=== PATIENT | female | born 1965 | race Caucasian/White ===

== ENCOUNTER 2022-01-24 19:17 | Inpatient (IN) | payer OTHER, SELFPAY ==
[2022-01-24 19:21] VITALS: BMI 44.7
[2022-01-24 19:30] VITALS: BP 142/82; PULSE 78; RESP 16; TEMP 36.1
--- NOTE | 2022-01-24 22:38 | PC.ADMIT ---
PT is a 56 year old Yemeni speaking female that arrived on this unit at 19:25 from [facility]. PT has a history of schizophrenia and has been well managed at home until recently her family noticed increasing paranoia and agitation. COVID neg on 01/22, CBC/CHEM on 01/18 WNL, tox screen not performed. PT is calm and cooperative, a & o x 3 but has very little insight into her current mental state. PT has had 3 previous suicide attempts one of which resulted in her cutting her jugular and subsequently causing a CVA. PT does have residual left hemiplegia and uses a cane for assistance with gait and requires assistance with bathing and dressing. PT denies SI/HI at this time, and states she will always seek staff if feeling unsafe. PT denies AH/VH at this time. PT has already received her seasonal flu vaccine. Hospitalist aware of need for consult.
[2022-01-25 08:28] VITALS: BP 152/80; PULSE 79; RESP 16
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
--- NOTE | 2022-01-25 09:17 | HO.PM.IMCN ---
History of Present Illness Data of Consult Service Date: 01/25/22 Primary Care Provider: Julita Hernández MD [facility] Reason for consult: medical H&P This is a 56 yo F who is admitted to the inpatient psych unit. Medical consult requested for routine medical H&P. Patient is seen in the exam room. [facility] staff is present. The patient does not divulge any medical information. She states that she has a team of doctors whom she follows with and does not need me to help her. She is requesting to speak with the psychiatrist for discharge. When asked about specific medical problems (HTN, DM, HLD, CAD) -- she says that they are all under control. [facility] Patient does not report divulge medical history except that she had a stroke before. Also reports prior kidney stones PSH Does not divulge FH States her family's medical problems are their own and its their HIPPA rights not to tell me them Denies tobacco, reports alcohol use, reports prior illicit substance use, but does not state what and when last use was Review of Systems Review of Systems: unable to completel [facility] Social History Household Members: Spouse Housing: House Do you presently have visiting nurse or other home services: No Patient Tobacco Use Status: Never used Tobacco e-Cigarette/Vaping Use: Never Used Use of substances other than those prescribed or required for medical reasons: No Have you been hit, kicked, punched, or otherwise hurt by someone within the past year? If so, by whom?: No Do you feel safe in your current relationship?: Yes Is there a partner from a previous relationship who is making you feel unsafe now?: No Are you made to feel afraid or neglected: No Advance Directives: No Advance Directives Information Provided: No Advance Directives on File: No Do you have thoughts of harming others: None Do you have a plan to hurt others: No Plan Recently lost weight without trying: No Nutrition Risks: No Nutritional Risk Patient : No : No Poor oral hygiene: No Meds Allergies Allergy/AdvReac Type Severity Reaction Status Date / Time Tetracyclines Allergy Mild Unknown Verified 01/24/22 19:43 bee pollen [bee stings] Allergy Unknown Verified 01/24/22 19:43 Iodinated Contrast Media Allergy Unknown Verified 01/24/22 19:43 [Contrast Dye] Active Medications: Current Medications Acetaminophen (Acetaminophen 325 Mg Tablet) 650 mg PO Q6H PRN PRN Reason: Headache/Pain Mild Scale (1-3) Al Hydroxide/Mg Hydroxide (Magnesium Hydrox/Alum Hydrox 30 Ml Oral.Susp) 30 ml PO Q6H PRN PRN Reason: Heartburn/Nausea Aspirin (Aspirin Enteric Coated 325 Mg Tablet.Dr) 325 mg PO DAILY [facility] Last Admin: 01/25/22 08:29 Dose: Not Given Documented by: Atorvastatin Calcium (Atorvastatin Calcium 20 Mg Tablet) 20 mg PO DAILY [facility] Last Admin: 01/25/22 08:29 Dose: Not Given Documented by: Baclofen (Baclofen 10 Mg Tablet) 5 mg PO BEDTIME [facility] Diphenhydramine HCl (Diphenhydramine Hcl 25 Mg Tablet) 50 mg PO Q4H PRN PRN Reason: agitation Furosemide (Furosemide 40 Mg Tablet) 40 mg PO DAILY [facility]; Protocol Last Admin: 01/25/22 08:29 Dose: Not Given Documented by: Haloperidol (Haloperidol 5 Mg Tablet) 5 mg PO Q4H PRN PRN Reason: agitation Hydroxyzine HCl (Hydroxyzine Hcl 25 Mg Tablet) 25 mg PO QID PRN PRN Reason: Anxiety Lorazepam (Lorazepam 1 Mg Tablet) 2 mg PO Q4H PRN PRN Reason: agitation Magnesium Hydroxide (Milk Of Magnesia 30 Ml Oral.Susp) 30 ml PO DAILY PRN PRN Reason: Constipation Nicotine Polacrilex (Nicotine Polacrilex 2 Mg Gum) 4 mg BUCCAL Q2H PRN PRN Reason: Nicotine Cravings Risperidone (Risperidone 1 Mg Tablet) 1 mg PO BID [facility] Last Admin: 01/25/22 08:29 Dose: Not Given Documented by: Trazodone HCl (Trazodone Hcl 50 Mg Tablet) 50 mg PO BEDTIME PRN PRN Reason: Insomnia Home Medications Medication Instructions Recorded Confirmed Last Taken Type aspirin 325 mg tablet,delayed 1 tab PO DAILY 01/24/22 01/24/22 Unknown History release atorvastatin 20 mg tablet 1 tab PO DAILY 01/24/22 01/24/22 Unknown History baclofen 5 mg tablet 1 tab PO BEDTIME 01/24/22 01/24/22 Unknown History escitalopram oxalate 10 mg tablet 1 tab PO DAILY 01/24/22 01/24/22 Unknown History fluticasone fur. 100 mcg-umeclid 1 puff INHALATION DAILY 01/24/22 01/24/22 Unknown History 62.5 mcg-vilant 25 mcg inhalat.powder (Trelegy Ellipta) furosemide 20 mg tablet 1 tab PO BID 01/24/22 01/24/22 01/24/22 History gabapentin 300 mg capsule 1 cap PO TID 01/24/22 01/24/22 Unknown History ipratropium bromide 21 mcg (0.03 INTRANASAL 01/24/22 Unknown History %) nasal spray tizanidine 4 mg capsule 1 cap PO BEDTIME 01/24/22 01/24/22 Unknown History Physical Exam Vital Signs and Narrative: Vital Signs: Last Vital Signs Temp 97 F 01/24/22 19:30 Pulse 79 01/25/22 08:28 Resp 16 01/25/22 08:28 BP 152/80 H 01/25/22 08:28 BMI result Body Mass Index 44.7 Const: Other: Exam -- patient does not allow exam From observation -- she has clear L hemiplegia and ambulates with a cane; her speech and EOMI are in tact; Assessment and Plan (1) Routine medical exam: Status: Acute Plan This is a 56 yo F who is admitted to the inpatient psych unit. Medical consult requested for routine medical H&P. Limited H&P and exam due to patient compliance. Appears stable at this time. Please reconsult PRN. Will sign off at this time.
[2022-01-25] MEDS: diphenhydrAMINE HCL 25 MG TABLET 50 MG PO (17:01)
[2022-01-25] MEDS: HaloperidoL 5 MG TABLET PO (17:01)
[2022-01-25] MEDS: LORazepam 1 MG TABLET 2 MG PO (17:01)
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
[2022-01-26] MEDS: Aspirin Enteric Coated 325 MG TABLET.DR PO (09:07)
[2022-01-26] MEDS: risperiDONE 1 MG TABLET PO (09:07)
[2022-01-26] MEDS: Atorvastatin Calcium 20 MG TABLET PO (09:08)
[2022-01-26] MEDS: Furosemide 20 MG TABLET PO ×2 (09:08→17:48)
[2022-01-26] MEDS: Gabapentin 300 MG CAPSULE PO ×3 (09:08→21:45)
[2022-01-26 09:39] VITALS: BP 140/78; PULSE 78; RESP 16; TEMP 36.6; O2SAT 96
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
[2022-01-26 18:00] VITALS: BP 132/67; PULSE 65; RESP 18; TEMP 36.4; O2SAT 97
--- NOTE | 2022-01-26 21:14 | PC.NURSE ---
Pt submitted a 3-Day Notice on 01/26/2022, up on Sunday01/31/2022.
[2022-01-26] MEDS: risperiDONE 2 MG TABLET PO (21:45)
[2022-01-26] MEDS: TiZANidine HCL 4 MG TABLET PO (21:45)
[2022-01-26] MEDS: Baclofen 10 MG TABLET 5 MG PO (21:55)
[2022-01-27] MEDS: Aspirin Enteric Coated 325 MG TABLET.DR PO (10:05)
[2022-01-27] MEDS: Atorvastatin Calcium 20 MG TABLET PO (10:06)
[2022-01-27] MEDS: Gabapentin 300 MG CAPSULE PO ×3 (10:06→20:33)
[2022-01-27] MEDS: Furosemide 20 MG TABLET PO ×2 (10:06→18:03)
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
[2022-01-27] MEDS: Ketorolac Tromethamine 30 MG/ML VIAL IM (12:32)
[2022-01-27 12:59] LABS: Appearance Urine HAZY; Color Urine YELLOW; Glucose Urine UA NEG (NEG); Leukocyte Esterase Urine NEG (NEG); Nitrite Urine NEG (NEG); Specific Gravity - Urine 1.025 (1.005-1.025); UACC Culture Trigger NO; Urine Blood 3+ (NEG); Urine Ketones NEG (NEG); Urine Protein 1+ MG/DL (NEG-TRACE)
[2022-01-27 13:13] LABS: Squamous Epithelial Cell Urine 1+ /LPF; WBC Urine 0-2 /HPF (0-4)
[2022-01-27 13:15] LABS: Amorphous Sediment Urine 1+ /LPF; Calcium Oxalate Crystals Urine 2+ /LPF
[2022-01-27] MEDS: risperiDONE 2 MG TABLET PO (20:33)
[2022-01-27] MEDS: Baclofen 10 MG TABLET 5 MG PO (20:33)
[2022-01-27] MEDS: TiZANidine HCL 4 MG TABLET PO (20:33)
[2022-01-27] MEDS: Acetaminophen 325 MG TABLET 650 MG PO (20:34)
[2022-01-27 20:46] VITALS: BP 123/70; PULSE 93; RESP 16; TEMP 35.9; O2SAT 96
[2022-01-28 06:00] VITALS: BP 120/65; PULSE 82; RESP 16; TEMP 36.9; O2SAT 94
[2022-01-28 08:00] LABS: Blood Urea Nitrogen 16 mg/dL (9-16); Creatinine Clr Calc Pharmacy 114.8; Estimated Glomerular Filt Rate > 60
[2022-01-28] MEDS: Gabapentin 300 MG CAPSULE PO ×3 (09:24→20:34)
[2022-01-28] MEDS: Atorvastatin Calcium 20 MG TABLET PO (09:25)
[2022-01-28] MEDS: Furosemide 20 MG TABLET PO ×2 (09:25→17:46)
[2022-01-28] MEDS: Aspirin Enteric Coated 325 MG TABLET.DR PO (09:25)
--- NOTE | 2022-01-28 14:14 | PM.EVENT ---
Event Note Date of Service: 01/28/22 Event Note: Asked to see patient with known history of renal calculi secondary to discomfort. When questioned, patient was able to do full accurate history of her renal calculi and treatment plan. At this point in time she does not wish any intervention. She has received Toradol yesterday with good results. She request no further intervention or workup
[2022-01-28 18:00] VITALS: BP 110/52; PULSE 79; RESP 16; TEMP 36.1
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
--- NOTE | 2022-01-28 19:52 | PC.NURSE ---
PT refusing to use CPAP. PT educated on risks of not using, pt verbalizes understanding.
[2022-01-28] MEDS: TiZANidine HCL 4 MG TABLET PO (20:33)
[2022-01-28] MEDS: Baclofen 10 MG TABLET 5 MG PO (20:33)
--- NOTE | 2022-01-28 20:35 | PC.NURSE ---
PT expressing frustration regarding hospitalization. Retracted 3 day notice on 01/26 due to pressure from staff that they would commit her but immediately signed another 3 day notice after retracting so patient feels the retraction she be voided. Per notes PT has spoken with human rights officer regarding this. PT states she has a strong medical support team and does not need to be hospitalized. PT denies any AH/VH, no SI/HI. PT requesting to speak w/ my endless track vehicle supervisor. Charge to talk with patient.
--- NOTE | 2022-01-28 21:57 | PC.NURSE ---
PT reported right flank pain however would not rate pain and refused any intervention and stated I will just deal with it despite several offers for intervention by this technical publications writer.
[2022-01-29 06:00] VITALS: BP 106/55; PULSE 66; RESP 18; TEMP 35.9; O2SAT 99
[2022-01-29] MEDS: Furosemide 20 MG TABLET PO (08:54)
[2022-01-29] MEDS: Atorvastatin Calcium 20 MG TABLET PO (08:54)
[2022-01-29] MEDS: Aspirin Enteric Coated 325 MG TABLET.DR PO (08:54)
[2022-01-29] MEDS: Gabapentin 300 MG CAPSULE PO ×3 (08:54→20:57)
[2022-01-29 08:58] VITALS: BP 130/60; PULSE 71; RESP 14; TEMP 35.8; O2SAT 98
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
[2022-01-29] MEDS: Baclofen 10 MG TABLET 5 MG PO (20:57)
[2022-01-29] MEDS: Ketorolac Tromethamine 30 MG/ML VIAL IM (20:59)
[2022-01-29 21:00] VITALS: BP 132/71; PULSE 92; TEMP 36.2; O2SAT 96
[2022-01-29] MEDS: TiZANidine HCL 4 MG TABLET PO (21:14)
[2022-01-30 06:00] VITALS: BP 126/62; PULSE 86; RESP 18; TEMP 36.3; O2SAT 98
[2022-01-30] MEDS: Acetaminophen 325 MG TABLET 650 MG PO (06:36)
[2022-01-30] MEDS: Aspirin Enteric Coated 325 MG TABLET.DR PO (08:49)
[2022-01-30] MEDS: Furosemide 20 MG TABLET PO ×2 (08:50→17:33)
[2022-01-30] MEDS: Atorvastatin Calcium 20 MG TABLET PO (08:50)
[2022-01-30] MEDS: Gabapentin 300 MG CAPSULE PO ×3 (08:50→22:52)
[2022-01-30] MEDS: Escitalopram Oxalate 10 MG TABLET PO (14:40)
[2022-01-30 16:00] VITALS: BP 118/73; PULSE 73; TEMP 36.6; O2SAT 98
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
[2022-01-30] MEDS: TiZANidine HCL 4 MG TABLET PO (22:52)
[2022-01-30] MEDS: Baclofen 10 MG TABLET 5 MG PO (22:53)
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
== END 2022-01-31 14:02 | disposition home or self-care (01) | DRG 885 ==
PROVIDERS: Admitting Provider Psychiatry & Neurology Psychiatry; PCP Family Medicine; Visit Provider Psychiatry & Neurology Psychiatry
DX: F20.0 Paranoid schizophrenia (principal); N20.0 Calculus of kidney; Z86.73 Personal history of transient ischemic attack (TIA), and cerebral infarction without residual deficits; Z91.51 Personal history of suicidal behavior; Z79.82 Long term (current) use of aspirin; Z79.899 Other long term (current) drug therapy
CPT/HCPCS: 36415; 81001; 82565; 84520; J1885; Q0163

== ENCOUNTER 2022-02-09 21:22 | Inpatient (IN) | payer OTHER, SELFPAY ==
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
[2022-02-09] MEDS: Gabapentin 100 MG CAPSULE PO (22:55)
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
[2022-02-10 06:00] VITALS: BP 96/64; PULSE 84; RESP 16; TEMP 36; O2SAT 93
[2022-02-10] MEDS: Furosemide 20 MG TABLET PO ×2 (09:06→20:20)
[2022-02-10] MEDS: Escitalopram Oxalate 10 MG TABLET PO (09:07)
[2022-02-10] MEDS: Atorvastatin Calcium 20 MG TABLET PO (09:07)
[2022-02-10] MEDS: Aspirin 325 MG TABLET PO (09:07)
[2022-02-10] MEDS: Gabapentin 300 MG CAPSULE PO ×3 (09:07→20:20)
[2022-02-10] MEDS: Ipratropium Bromide Nas 0.03 % 30 ML SPRAY 2 SPRAY NOSTRIL-B (09:11)
[2022-02-10 09:31] LABS: Cholesterol 154 mg/dL; HDL Cholesterol 49 mg/dL; LDL Cholesterol Calculated 68 mg/dl; Magnesium 2.4 mg/dL (1.6-2.6); Triglycerides 187 mg/dL
[2022-02-10 09:34] LABS: Estimated Average Glucose 108 mg/dL; Hemoglobin A1c % 5.4 %
[2022-02-10 09:52] LABS: Free T4 (Free Thyroxine) 1.22 ng/dL (0.71-1.85); Thyroid Stimulating Hormone 2.12 uIU/mL (0.32-4.0)
[2022-02-10 10:06] LABS: Folate 15.1 ng/mL (> or = 4.0); Vitamin B12 653 pg/mL (200-900)
--- NOTE | 2022-02-10 12:33 | HO.PM.IMCN ---
History of Present Illness Data of Consult Service Date: 02/10/22 Primary Care Provider: Unknown Physician HPI Reason for consult: Routine medical consult This chasidy 57 yo F with a PMh as outlined below who is admitted to the inpatient psychiatric unit. Medical consult requested for routine medical H&P per protocol. Patient is seen and examined in their room. They deny any medical complaints at this time. PMH CVA Kidney Stones COPD/Asthma PSH ? kidney surgery for stones FH Kidney disease and heart disease SH Denies any current alcohol, tobacco or illicit substance use Review of Systems Review of Systems: negative except HPI FORMERLY [facility], 1928–1983 Medical History (Updated 02/10/22 @ 12:42 by Carlos Doty MD) Schizophrenia, paranoid, chronic with acute exacerbation Social History Household Members: None Housing: House Do you presently have visiting nurse or other home services: No Patient Tobacco Use Status: Never used Tobacco e-Cigarette/Vaping Use: Never Used Use of substances other than those prescribed or required for medical reasons: No Currently Displaying Signs/Symptoms of Drug Intoxication Withdrawal: No Have you been hit, kicked, punched, or otherwise hurt by someone within the past year? If so, by whom?: No Do you feel safe in your current relationship?: Yes Is there a partner from a previous relationship who is making you feel unsafe now?: No Are you made to feel afraid or neglected: No Advance Directives: No Do you have thoughts of harming others: None Do you have a plan to hurt others: No Plan Recently lost weight without trying: No How much weight loss: Not applicable Nutrition Risks: No Nutritional Risk Patient : No : No Poor oral hygiene: No service: No Sexual orientation: Straight/Heterosexual Meds Allergies Allergy/AdvReac Type Severity Reaction Status Date / Time bee pollen [bee stings] Allergy Severe Anaphylaxis Verified 01/28/22 22:10 Iodinated Contrast Media Allergy Severe Unknown Verified 01/28/22 22:11 [Contrast Dye] Tetracyclines Allergy Mild Unknown Verified 01/24/22 19:43 Active Medications: Current Medications Acetaminophen (Acetaminophen 325 Mg Tablet) 650 mg PO Q6H PRN PRN Reason: Headache/Pain Mild Scale (1-3) Al Hydroxide/Mg Hydroxide (Magnesium Hydrox/Alum Hydrox 30 Ml Oral.Susp) 30 ml PO Q6H PRN PRN Reason: Heartburn/Nausea Aspirin (Aspirin 325 Mg Tablet) 325 mg PO DAILY [facility] Last Admin: 02/10/22 09:07 Dose: 325 mg Documented by: Atorvastatin Calcium (Atorvastatin Calcium 20 Mg Tablet) 20 mg PO DAILY [facility] Last Admin: 02/10/22 09:07 Dose: 20 mg Documented by: Baclofen (Baclofen 10 Mg Tablet) 5 mg PO BEDTIME [facility] Last Admin: 02/09/22 22:53 Dose: Not Given Documented by: Escitalopram Oxalate (Escitalopram Oxalate 10 Mg Tablet) 10 mg PO DAILY [facility] Last Admin: 02/10/22 09:07 Dose: 10 mg Documented by: Furosemide (Furosemide 20 Mg Tablet) 20 mg PO BID [facility]; Protocol Last Admin: 02/10/22 09:06 Dose: 20 mg Documented by: Gabapentin (Gabapentin 300 Mg Capsule) 300 mg PO TID@0800,1200,2000 [facility] Last Admin: 02/10/22 09:07 Dose: 300 mg Documented by: Gabapentin (Gabapentin 100 Mg Capsule) 100 mg PO BEDTIME [facility] Haloperidol (Haloperidol 5 Mg Tablet) 5 mg PO Q6H PRN PRN Reason: agitation, anxiety Hydroxyzine HCl (Hydroxyzine Hcl 25 Mg Tablet) 25 mg PO Q6H PRN PRN Reason: Anxiety Ipratropium [place] (Ipratropium [place] Abhishek 0.03 % 30 Ml [place]) 2 spray NOSTRIL-B QID PRN PRN Reason: Wheezing Last Admin: 02/10/22 09:11 Dose: 2 spray Documented by: Lorazepam (Lorazepam 1 Mg Tablet) 1 mg PO Q8H PRN PRN Reason: anxiety Magnesium Hydroxide (Milk Of Magnesia 30 Ml Oral.Susp) 30 ml PO DAILY PRN PRN Reason: Constipation Melatonin (Melatonin 3 Mg Tablet) 9 mg PO BEDTIME PRN PRN Reason: insomnia Non-Formulary Medication (Trelegy Ellipta) 100 mcg INHALE DAILY [facility] Risperidone (Risperidone 2 Mg Tablet) 2 mg PO BEDTIME [facility] Tizanidine HCl (Tizanidine Hcl 4 Mg Tablet) 4 mg PO BEDTIME [facility] Last Admin: 02/09/22 22:53 Dose: Not Given Documented by: Trazodone HCl (Trazodone Hcl 50 Mg Tablet) 50 mg PO BEDTIME PRN PRN Reason: Insomnia Home Medications Medication Instructions Recorded Confirmed Last Taken Type aspirin 325 mg tablet,delayed 1 tab PO DAILY 01/24/22 01/24/22 Unknown History release atorvastatin 20 mg tablet 1 tab PO DAILY 01/24/22 02/09/22 Unknown History baclofen 5 mg tablet 1 tab PO BEDTIME 01/24/22 02/09/22 Unknown History escitalopram oxalate 10 mg tablet 1 tab PO DAILY 01/24/22 01/24/22 Unknown History fluticasone fur. 100 mcg-umeclid 1 puff INHALATION DAILY 01/24/22 01/24/22 Unknown History 62.5 mcg-vilant 25 mcg inhalat.powder (Trelegy Ellipta) furosemide 20 mg tablet 1 tab PO BID 01/24/22 02/09/22 01/24/22 History gabapentin 300 mg capsule 1 cap PO TID 01/24/22 01/24/22 Unknown History ipratropium bromide 21 mcg (0.03 INTRANASAL 01/24/22 Unknown History %) nasal spray tizanidine 4 mg capsule 1 cap PO BEDTIME 01/24/22 02/09/22 Unknown History Physical Exam Vital Signs and Narrative: Vital Signs: Last Vital Signs Temp 96.8 F 02/10/22 06:00 Pulse 84 02/10/22 06:00 Resp 16 02/10/22 06:00 BP 96/64 02/10/22 06:00 Pulse Ox 93 02/10/22 06:00 Const: Other: Constitutional - Awake and Alert, No apparent distress Eyes - PERRLA, EOMI Cardiovascular - S1S2, RRR, No edema Respiratory - Normal lung expansion, Normal respiratory effort, No respiratory distress, CTA bilaterally Gastrointestinal - NT / ND; +BS; No rebound or guarding - No CVA tenderness Extremities - no calf tenderness bilaterally, no swelling Musculoskeletal - Normal inspection, normal ROM Skin - Warm/Dry Neurological - Alert & oriented x3, L Dimitry-plagia; CN 2-12 in tact b/l Psychological - Appropriate affect Results Labs Labs: Laboratory Results - last 24 hr 02/10/22 02/10/22 02/10/22 08:44 08:44 08:44 Estimat Average Glucose 108 Hemoglobin A1c % 5.4 Magnesium 2.4 Triglycerides 187 Cholesterol 154 LDL Cholesterol, Calc 68 HDL Cholesterol 49 Vitamin B12 653 Folate 15.1 TSH 2.12 Free T4 1.22 Assessment and Plan (1) Routine medical exam: Status: Acute Plan 57 yo F admitted to the inpatient psych unit. Medical consultation sought for routine medical H&P. Patient has no active medical issues. Continue her chronic meds. Patient has been counseled on age appropriate health maintenance as an outpatient. Continue care per primary team. Will sign off. Please re-consult if any issues arise.
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
[2022-02-10 18:00] VITALS: BP 114/67; PULSE 84
[2022-02-10 20:15] VITALS: BP 140/92; PULSE 98
[2022-02-10] MEDS: Baclofen 10 MG TABLET 5 MG PO (20:20)
[2022-02-10] MEDS: Gabapentin 100 MG CAPSULE PO (20:20)
[2022-02-10] MEDS: risperiDONE 2 MG TABLET PO (20:20)
[2022-02-10] MEDS: TiZANidine HCL 4 MG TABLET PO (20:56)
[2022-02-11] MEDS: Atorvastatin Calcium 20 MG TABLET PO (08:28)
[2022-02-11] MEDS: Gabapentin 300 MG CAPSULE PO ×3 (08:28→20:27)
[2022-02-11] MEDS: Furosemide 20 MG TABLET PO ×2 (08:28→20:27)
[2022-02-11] MEDS: Escitalopram Oxalate 10 MG TABLET PO (08:28)
[2022-02-11] MEDS: Aspirin 325 MG TABLET PO (08:28)
[2022-02-11 08:30] VITALS: BP 99/61; PULSE 63; RESP 14; TEMP 36.3; O2SAT 94
[2022-02-11] MEDS: Ipratropium Bromide Nas 0.03 % 30 ML SPRAY 2 SPRAY NOSTRIL-B ×2 (08:30→20:31)
[2022-02-11 09:15] VITALS: BP 133/81; PULSE 75; RESP 18
--- NOTE | 2022-02-11 17:29 | HO.PSYCHPN ---
Subjective Subjective Date of Service: 02/11/22 Reason For Visit: Schizophrenia Interim History: Patient seen and discussed with team. Per licensed staff mft, pt had fall at 9:30am, no LOC, did not hit her head, had lost her balance, will give permission for cane. Daughter visited and helped her shower, will be visiting. Patient evaluated today and upon interview she reports she fell due to feeling unsteady, but says her cane helps. Sleep is poor, energy is low, feels tired. Medication is fine, does not want changes. No questions or concerns. Mood is okay. In the milieu, patient is safe and appropriate in behavior. Denies SI/SIB/HI upon inquiry. Denies irritability or assaultive ideation. Says she feels safe. 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 Obese, in hospital attire, okay hygiene. Poor eye contact, attentive. No Tics or Tremors. No abnormal involuntary movements. Calm, guarded but ultimately cooperative with interview. Non-pressured speech, spontaneous with regular rate and rhythm, normal volume and prosody. No prolonged speech latency or dysarthria. Mood is ?tired,? affect is euthymic. Denies SI/SIB/HI upon inquiry. Denies A/VH. Paranoid delusional thought content. Thoughts are focused on fixed delusion. No known cognitive or memory impairment. Insight/ Judgment limited. Diagnostics Vital Signs (24Hr): Vital Signs - 24 hr 02/12/22 08:26 02/12/22 18:00 Temperature 97.4 F 98.0 F Pulse Rate 87 74 Respiratory Rate 14 Blood Pressure 141/65 H 126/60 Pulse Oximetry 95 98 Medications Medications Current Medications Acetaminophen (Acetaminophen 325 Mg Tablet) 650 mg PO Q6H PRN PRN Reason: Headache/Pain Mild Scale (1-3) Al Hydroxide/Mg Hydroxide (Magnesium Hydrox/Alum Hydrox 30 Ml Oral.Susp) 30 ml PO Q6H PRN PRN Reason: Heartburn/Nausea Aspirin (Aspirin 325 Mg Tablet) 325 mg PO DAILY [facility] Last Admin: 02/12/22 08:24 Dose: 325 mg Documented by: Atorvastatin Calcium (Atorvastatin Calcium 20 Mg Tablet) 20 mg PO DAILY [facility] Last Admin: 02/12/22 08:24 Dose: 20 mg Documented by: Baclofen (Baclofen 10 Mg Tablet) 5 mg PO BEDTIME [facility] Last Admin: 02/12/22 20:02 Dose: 5 mg Documented by: Escitalopram Oxalate (Escitalopram Oxalate 10 Mg Tablet) 10 mg PO DAILY [facility] Last Admin: 02/12/22 08:24 Dose: 10 mg Documented by: Furosemide (Furosemide 20 Mg Tablet) 20 mg PO BID [facility]; Protocol Last Admin: 02/12/22 20:01 Dose: 20 mg Documented by: Gabapentin (Gabapentin 300 Mg Capsule) 300 mg PO TID@0800,1200,2000 [facility] Last Admin: 02/12/22 20:02 Dose: 300 mg Documented by: Gabapentin (Gabapentin 100 Mg Capsule) 100 mg PO BEDTIME [facility] Last Admin: 02/12/22 20:02 Dose: 100 mg Documented by: Haloperidol (Haloperidol 5 Mg Tablet) 5 mg PO Q6H PRN PRN Reason: agitation, anxiety Hydroxyzine HCl (Hydroxyzine Hcl 25 Mg Tablet) 25 mg PO Q6H PRN PRN Reason: Anxiety Ipratropium [place] (Ipratropium [place] Abhishek 0.03 % 30 Ml [place]) 2 spray NOSTRIL-B QID PRN PRN Reason: Wheezing Last Admin: 02/12/22 08:23 Dose: 2 spray Documented by: Lorazepam (Lorazepam 1 Mg Tablet) 1 mg PO Q8H PRN PRN Reason: anxiety Magnesium Hydroxide (Milk Of Magnesia 30 Ml Oral.Susp) 30 ml PO DAILY PRN PRN Reason: Constipation Melatonin (Melatonin 3 Mg Tablet) 9 mg PO BEDTIME PRN PRN Reason: insomnia Non-Formulary Medication (Trelegy Ellipta) 100 mcg INHALE DAILY [facility] Risperidone (Risperidone 2 Mg Tablet) 2 mg PO BEDTIME [facility] Last Admin: 02/12/22 20:02 Dose: 2 mg Documented by: Tizanidine HCl (Tizanidine Hcl 4 Mg Tablet) 4 mg PO BEDTIME [facility] Last Admin: 02/12/22 20:01 Dose: 4 mg Documented by: Trazodone HCl (Trazodone Hcl 50 Mg Tablet) 50 mg PO BEDTIME PRN PRN Reason: Insomnia Allergies Allergies Allergy/AdvReac Type Severity Reaction Status Date / Time bee pollen [bee stings] Allergy Severe Anaphylaxis Verified 01/28/22 22:10 Iodinated Contrast Media Allergy Severe Unknown Verified 01/28/22 22:11 [Contrast Dye] Tetracyclines Allergy Mild Unknown Verified 01/24/22 19:43 Assessment & Plan Assessment & Plan (1) Schizophrenia, paranoid, chronic with acute exacerbation: Status: Acute Code(s): F20.0 - Paranoid schizophrenia Plan Caryn is a 56 yo female who carries a dx of paranoid schizophrenia. 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 She presented to [facility] ED on 02/07/22 due to disorganized and paranoid behavior, brought in by her after found in middle of road screaming at 5am. Pt recently admitted to [facility] M5 01/25/22 to 01/31/22. She was started on risperdal with good effect and discharged on 2 mg QHS. Since discharge, pt reports she has been non-adherent with PO risperdal. Pt has SELMA but refuses to use hospital CPAP.? Plan: re-start risperdal 2 mg QHS due to benefit on prev admission. Pt appears calmer during this admission and with increased behavioral control vs previous admission, in which she was much more agitated and difficult to redirect. Q15 min safety checks, CV, 3 day notice 02/09/2202/11: resume using cane, able to stay in behavioral control Monitor response to medications. Monitor for safety in the milieu. Discharge on stabilization. Patient seen. Chart reviewed. Discussed with team. Obtain collateral contact info?as needed I spent minutes with the patient and/or on the patient floor today, greater than?50% of which was spent counseling/coordinating care. Reason for contiued inpatient stay Substantial Risk for: rapid decompensation and med/psych decompensation
[2022-02-11 20:15] VITALS: BP 111/54; PULSE 75; TEMP 36.3; O2SAT 95
[2022-02-11] MEDS: risperiDONE 2 MG TABLET PO (20:27)
[2022-02-11] MEDS: Baclofen 10 MG TABLET 5 MG PO (20:27)
[2022-02-11] MEDS: Gabapentin 100 MG CAPSULE PO (20:29)
[2022-02-11] MEDS: TiZANidine HCL 4 MG TABLET PO (20:29)
[2022-02-12] MEDS: Ipratropium Bromide Nas 0.03 % 30 ML SPRAY 2 SPRAY NOSTRIL-B (08:23)
[2022-02-12] MEDS: Escitalopram Oxalate 10 MG TABLET PO (08:24)
[2022-02-12] MEDS: Gabapentin 300 MG CAPSULE PO ×3 (08:24→20:02)
[2022-02-12] MEDS: Aspirin 325 MG TABLET PO (08:24)
[2022-02-12] MEDS: Furosemide 20 MG TABLET PO ×2 (08:24→20:01)
[2022-02-12] MEDS: Atorvastatin Calcium 20 MG TABLET PO (08:24)
[2022-02-12 08:26] VITALS: BP 141/65; PULSE 87; RESP 14; TEMP 36.3; O2SAT 95
[2022-02-12 18:00] VITALS: BP 126/60; PULSE 74; TEMP 36.7; O2SAT 98
--- NOTE | 2022-02-12 18:40 | P.PNPSI_ITS ---
Subjective Subjective Date of Service: 02/12/22 Reason For Visit: Schizophrenia Subjective Notes: Laws Warning, Conditional Voluntary and 3 Day Interim History: Patient seen and discussed with team. Patient evaluated today and upon interview pt says she is Doing alright. Denies having questions or concerns. Sleep is good, snores, energy is okay. Denies mood concerns, says medication is helping. In the milieu, patient is safe and appropriate in behavior, playing board game with peers. Denies SI/SIB/HI upon inquiry. Denies irritability or assaultive ideation. Says she feels safe. 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 Obese, in hospital attire, okay hygiene. Poor eye contact, attentive. No Tics or Tremors. No abnormal involuntary movements. Calm, guarded but ultimately cooperative with interview. Non-pressured speech, spontaneous with regular rate and rhythm, normal volume and prosody. No prolonged speech latency or dysarthria. Mood is ?alright,? affect is euthymic. Denies SI/SIB/HI upon inquiry. Denies A/VH. Paranoid delusional thought content. Thoughts are focused on fixed delusion. No known cognitive or memory impairment. Insight/ Judgment limited. Diagnostics Vital Signs (24Hr): Vital Signs - 24 hr 02/12/22 18:00 Temperature 98.0 F Pulse Rate 74 Blood Pressure 126/60 Pulse Oximetry 98 Medications Medications Current Medications Acetaminophen (Acetaminophen 325 Mg Tablet) 650 mg PO Q6H PRN PRN Reason: Headache/Pain Mild Scale (1-3) Al Hydroxide/Mg Hydroxide (Magnesium Hydrox/Alum Hydrox 30 Ml Oral.Susp) 30 ml PO Q6H PRN PRN Reason: Heartburn/Nausea Aspirin (Aspirin 325 Mg Tablet) [address] [facility] Last Admin: 02/12/22 08:24 Dose: 325 mg Documented by: Atorvastatin Calcium (Atorvastatin Calcium 20 Mg Tablet) [address] [facility] Last Admin: 02/12/22 08:24 Dose: 20 mg Documented by: Baclofen (Baclofen 10 Mg Tablet) [address] [facility] Last Admin: 02/12/22 20:02 Dose: 5 mg Documented by: Escitalopram Oxalate (Escitalopram Oxalate 10 Mg Tablet) [address] [facility] Last Admin: 02/12/22 08:24 Dose: 10 mg Documented by: Furosemide (Furosemide 20 Mg Tablet) [address] [facility]; Protocol Last Admin: 02/12/22 20:01 Dose: 20 mg Documented by: Gabapentin (Gabapentin 300 Mg Capsule) 300 mg PO TID@0800,1200,2000 [facility] Last Admin: 02/12/22 20:02 Dose: 300 mg Documented by: Gabapentin (Gabapentin 100 Mg Capsule) [address] [facility] Last Admin: 02/12/22 20:02 Dose: 100 mg Documented by: Haloperidol (Haloperidol 5 Mg Tablet) 5 mg PO Q6H PRN PRN Reason: agitation, anxiety Hydroxyzine HCl (Hydroxyzine Hcl 25 Mg Tablet) 25 mg PO Q6H PRN PRN Reason: Anxiety Ipratropium [place] (Ipratropium [place] Abhishek 0.03 % 30 Ml [place]) 2 spray NOSTRIL-B QID PRN PRN Reason: Wheezing Last Admin: 02/12/22 08:23 Dose: 2 spray Documented by: Lorazepam (Lorazepam 1 Mg Tablet) 1 mg PO Q8H PRN PRN Reason: anxiety Magnesium Hydroxide (Milk Of Magnesia 30 Ml Oral.Susp) 30 ml PO DAILY PRN PRN Reason: Constipation Melatonin (Melatonin 3 Mg Tablet) 9 mg PO BEDTIME PRN PRN Reason: insomnia Non-Formulary Medication (Trelegy Ellipta) [address] [facility] Risperidone (Risperidone 2 Mg Tablet) [address] [facility] Last Admin: 02/12/22 20:02 Dose: 2 mg Documented by: Tizanidine HCl (Tizanidine Hcl 4 Mg Tablet) [address] [facility] Last Admin: 02/12/22 20:01 Dose: 4 mg Documented by: Trazodone HCl (Trazodone Hcl 50 Mg Tablet) 50 mg PO BEDTIME PRN PRN Reason: Insomnia Allergies Allergies Allergy/AdvReac Type Severity Reaction Status Date / Time bee pollen [bee stings] Allergy Severe Anaphylaxis Verified 01/28/22 22:10 Iodinated Contrast Media Allergy Severe Unknown Verified 01/28/22 22:11 [Contrast Dye] Tetracyclines Allergy Mild Unknown Verified 01/24/22 19:43 Assessment & Plan Assessment & Plan (1) Schizophrenia, paranoid, chronic with acute exacerbation: Status: Acute Code(s): F20.0 - Paranoid schizophrenia Plan Caryn is a 56 yo female who carries a dx of paranoid schizophrenia. 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 She presented to [facility] ED on 02/07/22 due to disorganized and paranoid behavior, brought in by her after found in middle of road screaming at 5am. Pt recently admitted to [facility] [place] [facility] 01/25/22 to 01/31/22. She was started on risperdal with good effect and discharged on 2 mg QHS. Since discharge, pt reports she has been non-adherent with PO risperdal. Pt has SELMA but refuses to use hospital CPAP.? Plan: re-start risperdal 2 mg QHS due to benefit on prev admission. Pt appears calmer during this admission and with increased behavioral control vs previous admission, in which she was much more agitated and difficult to redirect. Q15 min safety checks, CV, 3 day notice 02/09/2202/11: resume using cane, able to stay in behavioral control 02/12: no medication changes, pt reports feeling stable Monitor response to medications. Monitor for safety in the milieu. Discharge on stabilization. Patient seen. Chart reviewed. Discussed with team. Obtain collateral contact info?as needed I spent minutes with the patient and/or on the patient floor today, greater than?50% of which was spent counseling/coordinating care. Reason for contiued inpatient stay Substantial Risk for: med/psych decompensation
[2022-02-12] MEDS: TiZANidine HCL 4 MG TABLET PO (20:01)
[2022-02-12] MEDS: Baclofen 10 MG TABLET 5 MG PO (20:02)
[2022-02-12] MEDS: risperiDONE 2 MG TABLET PO (20:02)
[2022-02-12] MEDS: Gabapentin 100 MG CAPSULE PO (20:02)
[2022-02-13 08:51] VITALS: BP 141/72; PULSE 64; TEMP 36.6
[2022-02-13] MEDS: Furosemide 20 MG TABLET PO ×2 (09:03→21:09)
[2022-02-13] MEDS: Gabapentin 300 MG CAPSULE PO ×3 (09:03→21:09)
[2022-02-13] MEDS: Escitalopram Oxalate 10 MG TABLET PO (09:03)
[2022-02-13] MEDS: Aspirin 325 MG TABLET PO (09:04)
[2022-02-13] MEDS: Atorvastatin Calcium 20 MG TABLET PO (09:04)
[2022-02-13] MEDS: Ipratropium Bromide Nas 0.03 % 30 ML SPRAY 2 SPRAY NOSTRIL-B (09:08)
--- NOTE | 2022-02-13 15:14 | PC.NURSE ---
Patient retracted previous 3 day , signed a new on on 02/13, up on 02/16.
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
[2022-02-13 19:50] VITALS: BP 117/62; PULSE 74; RESP 17; TEMP 36.2; O2SAT 97
[2022-02-13] MEDS: TiZANidine HCL 4 MG TABLET PO (21:09)
[2022-02-13] MEDS: Gabapentin 100 MG CAPSULE PO (21:09)
[2022-02-13] MEDS: risperiDONE 2 MG TABLET PO (21:09)
[2022-02-13] MEDS: Baclofen 10 MG TABLET 5 MG PO (21:09)
[2022-02-14 08:00] VITALS: BP 134/85; PULSE 86; RESP 17; TEMP 36.3; O2SAT 96
[2022-02-14] MEDS: Atorvastatin Calcium 20 MG TABLET PO (08:42)
[2022-02-14] MEDS: Furosemide 20 MG TABLET PO ×2 (08:42→19:09)
[2022-02-14] MEDS: Aspirin 325 MG TABLET PO (08:43)
[2022-02-14] MEDS: Escitalopram Oxalate 10 MG TABLET PO (08:44)
[2022-02-14] MEDS: Gabapentin 300 MG CAPSULE PO ×3 (08:45→20:49)
--- NOTE | 2022-02-14 18:59 | P.PNPSI_ITS ---
Subjective Subjective Date of Service: 02/14/22 Reason For Visit: Schizophrenia Interim History: Patient reports that she is in good mood and sleeping better. She says that the dizziness which she has soon was is from Risperdal remains but is getting better and much less noticeable. Patient denies any SI, HI AVH and continues to take and appreciate Risperdal. No complaints, no requests. Patient remains in good behavioral and impulse control and appropriate on the unit. Mental Status Exam Mental Status Exam Narrative: Pt is alert and oriented; behavior is calm and cooperative; dressed in casual attire, adequately groomed, walks with limp s/p CVA; mood is described as good and affect congruent, calm; eye contact appropriate; Speech is normal rate, volume and prosody; no psychomotor agitation present; thought process goal oriented and mostly linear; though still circumstantial, much less than on admission; Thought content processing why she got so dysregulated, dealing with anger towards her father and on treatment; perhaps some delusional thinking; she denies current delusional content or?paranoid ideation but acknowledges recent delusional thoughts; denies any SI/HI. Denies AVH; ?Patients insight and judgment are impaired but improved. Diagnostics Vital Signs (24Hr): Vital Signs - 24 hr 02/13/22 19:50 02/14/22 08:00 Temperature 97.1 F 97.3 F Pulse Rate 74 86 Respiratory Rate 17 17 Blood Pressure 117/62 134/85 Pulse Oximetry 97 96 Medications Medications Current Medications Acetaminophen (Acetaminophen 325 Mg Tablet) 650 mg PO Q6H PRN PRN Reason: Headache/Pain Mild Scale (1-3) Al Hydroxide/Mg Hydroxide (Magnesium Hydrox/Alum Hydrox 30 Ml Oral.Susp) 30 ml PO Q6H PRN PRN Reason: Heartburn/Nausea Aspirin (Aspirin 325 Mg Tablet) 325 mg PO DAILY [facility] Last Admin: 02/14/22 08:43 Dose: 325 mg Documented by: Atorvastatin Calcium (Atorvastatin Calcium 20 Mg Tablet) 20 mg PO DAILY [facility] Last Admin: 02/14/22 08:42 Dose: 20 mg Documented by: Baclofen (Baclofen 10 Mg Tablet) 5 mg PO BEDTIME [facility] Last Admin: 02/13/22 21:09 Dose: 5 mg Documented by: Escitalopram Oxalate (Escitalopram Oxalate 10 Mg Tablet) 10 mg PO DAILY [facility] Last Admin: 02/14/22 08:44 Dose: 10 mg Documented by: Fluticasone/Vilanterol (Fluticasone/Vilanterol 100/25 Blst.W.Dev) 1 puff INHALE RDAILY [facility] Furosemide (Furosemide 20 Mg Tablet) 20 mg PO BID [facility]; Protocol Last Admin: 02/14/22 08:42 Dose: 20 mg Documented by: Gabapentin (Gabapentin 300 Mg Capsule) 300 mg PO TID@0800,1200,2000 [facility] Last Admin: 02/14/22 12:40 Dose: 300 mg Documented by: Gabapentin (Gabapentin 100 Mg Capsule) 100 mg PO BEDTIME [facility] Last Admin: 02/13/22 21:09 Dose: 100 mg Documented by: Haloperidol (Haloperidol 5 Mg Tablet) 5 mg PO Q6H PRN PRN Reason: agitation, anxiety Hydroxyzine HCl (Hydroxyzine Hcl 25 Mg Tablet) 25 mg PO Q6H PRN PRN Reason: Anxiety Ipratropium [place] (Ipratropium [place] Abhishek 0.03 % 30 Ml [place]) 2 spray NOSTRIL-B QID PRN PRN Reason: Wheezing Last Admin: 02/13/22 09:08 Dose: 2 spray Documented by: Lorazepam (Lorazepam 1 Mg Tablet) 1 mg PO Q8H PRN PRN Reason: anxiety Magnesium Hydroxide (Milk Of Magnesia 30 Ml Oral.Susp) 30 ml PO DAILY PRN PRN Reason: Constipation Melatonin (Melatonin 3 Mg Tablet) 9 mg PO BEDTIME PRN PRN Reason: insomnia Risperidone (Risperidone 2 Mg Tablet) 2 mg PO BEDTIME [facility] Last Admin: 02/13/22 21:09 Dose: 2 mg Documented by: Tiotropium [place] (Tiotropium [place] 18 Mcg Cap.W.Dev) 1 puff INHALE RDAILY [facility] Tizanidine HCl (Tizanidine Hcl 4 Mg Tablet) 4 mg PO BEDTIME [facility] Last Admin: 02/13/22 21:09 Dose: 4 mg Documented by: Trazodone HCl (Trazodone Hcl 50 Mg Tablet) 50 mg PO BEDTIME PRN PRN Reason: Insomnia Allergies Allergies Allergy/AdvReac Type Severity Reaction Status Date / Time bee pollen [bee stings] Allergy Severe Anaphylaxis Verified 01/28/22 22:10 Iodinated Contrast Media Allergy Severe Unknown Verified 01/28/22 22:11 [Contrast Dye] Tetracyclines Allergy Mild Unknown Verified 01/24/22 19:43 Assessment & Plan Assessment & Plan (1) Schizoaffective disorder, bipolar type: Status: Acute Code(s): F25.0 - Schizoaffective disorder, bipolar type (2) Chronic post-traumatic stress disorder (PTSD): Status: Acute Code(s): F43.12 - Post-traumatic stress disorder, chronic Plan Caryn is a 56 yo female who carries a dx of paranoid schizophrenia. 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 She [place] [facility] [place] due to disorganized and paranoid behavior, brought in by her after found in middle of road screaming at 5am. Pt recently admitted to [facility] 01/25/22 to 01/31/22. She was started on risperdal with good effect and discharged on 2 mg QHS. Since discharge, pt reports she has been non-adherent with PO risperdal. Pt has SELMA but refuses to use hospital CPAP.? -agrees to risperdal 2 mg QHS due to benefit on prev admission. Pt appears calmer during this admission and with increased behavioral control vs previous admission, in which she was much more agitated and difficult to redirect. Patient does not think she has a psychotic disorder however agrees that antipsychotic medication may be helpful 02/13 Patient much more calm, linear and organized. She is still circumstantial in her speech but not overly so. She also agrees that she was dysregulated and delusional prior to this admission and agrees she needs to keep taking Risperdal. Patient wants to go home but agrees to retract 3 day notice to demonstrate continued stability. Patient will place another 3 day notice in for insurance sake. Patient may still have some delusional thought content however she has remained appropriate with peers and staff, and good behavioral and impulse control on the unit, attending groups and contributing appropriately. If patient remains on current medication it is possible she could remained stable enough for discharge. Will get her 's input Schizophrenia/schizoaffective VS Delusional disorder VS Ptsd: No history of antipsychotic medication?other than prior admission 10 days ago when she took Risperdal for a few days but then refused it Patient has history of chronic paranoid delusional thinking at baseline independent of mood episodes; this has been ongoing for years and is something her family understands and accepts; until past month, she has mostly been able to safely function, living with her family. She denies AVH however her reports she will talk to herself, sometimes for hours and can be internally preoccupied. This past 10 days she has hardly slept at all leading diagnosis more toward schizoaffective disorder with intermittent depressed/manic episodes. Patient psychotic symptoms are most likely organic and due to a psychotic disorder. That said it is very likely that her history of trauma which she has been addressing more in therapy over the past few months, combined with urgency to confront her father are significant exacerbating factors. Patient struggles with insight into the extent of her psychotic symptoms. Plan: Q15 min safety checks, CV, 3 day notice Risperdal 2 mg q.h.s. Monitor response to medications. Monitor for safety in the milieu. Discharge on stabilization. Patient seen. Chart reviewed. Discussed with team. Obtain collateral contact info?as needed I spent minutes with the patient and/or on the patient floor today, great er than?50% of which was spent counseling/coordinating care. Patient educated on: therapeutic strategies Informed Consent: understands Reason for contiued inpatient stay Substantial Risk for: med/psych decompensation
[2022-02-14 19:00] VITALS: BP 116/72; PULSE 88; TEMP 37.1; O2SAT 95
[2022-02-14] MEDS: risperiDONE 2 MG TABLET PO (20:48)
[2022-02-14] MEDS: Baclofen 10 MG TABLET 5 MG PO (20:48)
[2022-02-14] MEDS: TiZANidine HCL 4 MG TABLET PO (20:49)
[2022-02-14] MEDS: Gabapentin 100 MG CAPSULE PO (20:50)
[2022-02-15] MEDS: Ipratropium Bromide Nas 0.03 % 30 ML SPRAY 2 SPRAY NOSTRIL-B ×2 (05:22→09:28)
[2022-02-15] MEDS: Acetaminophen 325 MG TABLET 650 MG PO (05:23)
[2022-02-15 09:00] VITALS: BP 118/56; PULSE 85; RESP 16; TEMP 36.8; O2SAT 94
[2022-02-15] MEDS: Fluticasone/Vilanterol 100/25 BLST.W.DEV 1 PUFF INHALE (09:29)
[2022-02-15] MEDS: Atorvastatin Calcium 20 MG TABLET PO (09:30)
[2022-02-15] MEDS: Escitalopram Oxalate 10 MG TABLET PO (09:30)
[2022-02-15] MEDS: Furosemide 20 MG TABLET PO ×2 (09:30→16:59)
[2022-02-15] MEDS: Gabapentin 300 MG CAPSULE PO ×3 (09:30→20:47)
[2022-02-15] MEDS: Aspirin 325 MG TABLET PO (09:30)
[2022-02-15 16:55] VITALS: BP 123/59; PULSE 71; TEMP 36.5; O2SAT 96
--- NOTE | 2022-02-15 18:23 | HO.PSYCHPN ---
Subjective Subjective Date of Service: 02/15/22 Reason For Visit: Schizophrenia Interim History: Patient reports she is doing well. Had a family meeting with her, her and social work coordinator. Patient agrees that medications are helpful and even though she does feel a little bit medicated she says it is tolerable and feels that it has been lessening each day. She plans to continue taking them and feels that this will really help her deal with her history of trauma. Patient also agrees that going out late at night by herself walking history does dangerous and is upsetting to her . Her understand that sometimes she needs space and it is helpful her to be outside to cool down. In turn, She agrees that if she leaves the house, she will inform her , will wear her brace take her cane, wear shoes and appropriate whether related clothing and, stay on the sidewalk. Both and patient laughed about this agreement grateful to be able to discuss the topic. Patient feels ready to go home denies any SI, HI or AVH and is optimistic about remaining stable. Top Spotter spoke with her who also agrees that she is stable and able to come home. He too was optimistic given that she is on medication. Mental Status Exam Mental Status Exam Narrative: Pt is alert and oriented; behavior is calm and cooperative; dressed in casual attire, adequately groomed, walks with limp s/p CVA; mood is described as good and affect congruent, calm; eye contact appropriate; Speech is normal rate, volume and prosody; no psychomotor agitation present; thought process goal oriented and mostly linear; though still circumstantial, much less than on admission; Thought content discharge and continuing treatment, therapy as an outpt and continuing to process her hx of trauma; perhaps some delusional thinking but this is baseline; she denies current delusional content or?paranoid ideation; denies any SI/HI. Denies AVH; ?Patients insight and judgment are impaired but adequate and at baseline. Diagnostics Vital Signs (24Hr): Vital Signs - 24 hr 02/14/22 19:00 02/15/22 09:00 02/15/22 16:55 Temperature 98.8 F 98.2 F 97.7 F Pulse Rate 88 85 71 Respiratory Rate 16 Blood Pressure 116/72 118/56 L 123/59 L Pulse Oximetry 95 94 96 Medications Medications Current Medications Acetaminophen (Acetaminophen 325 Mg Tablet) 650 mg PO Q6H PRN PRN Reason: Headache/Pain Mild Scale (1-3) Last Admin: 02/15/22 05:23 Dose: 650 mg Documented by: Al Hydroxide/Mg Hydroxide (Magnesium Hydrox/Alum Hydrox 30 Ml Oral.Susp) 30 ml PO Q6H PRN PRN Reason: Heartburn/Nausea Aspirin (Aspirin 325 Mg Tablet) 325 mg PO DAILY [facility] Last Admin: 02/15/22 09:30 Dose: 325 mg Documented by: Atorvastatin Calcium (Atorvastatin Calcium 20 Mg Tablet) 20 mg PO DAILY [facility] Last Admin: 02/15/22 09:30 Dose: 20 mg Documented by: Baclofen (Baclofen 10 Mg Tablet) 5 mg PO BEDTIME [facility] Last Admin: 02/14/22 20:48 Dose: 5 mg Documented by: Escitalopram Oxalate (Escitalopram Oxalate 10 Mg Tablet) 10 mg PO DAILY [facility] Last Admin: 02/15/22 09:30 Dose: 10 mg Documented by: Fluticasone/Vilanterol (Fluticasone/Vilanterol 100/25 Blst.W.Dev) 1 puff INHALE RDAILY [facility] Last Admin: 02/15/22 09:29 Dose: 1 puff Documented by: Furosemide (Furosemide 20 Mg Tablet) 20 mg PO 0900,1700 [facility]; Protocol Last Admin: 02/15/22 16:59 Dose: 20 mg Documented by: Gabapentin (Gabapentin 300 Mg Capsule) 300 mg PO TID@0800,1200,2000 [facility] Last Admin: 02/15/22 13:18 Dose: 300 mg Documented by: Gabapentin (Gabapentin 100 Mg Capsule) 100 mg PO BEDTIME [facility] Last Admin: 02/14/22 20:50 Dose: 100 mg Documented by: Haloperidol (Haloperidol 5 Mg Tablet) 5 mg PO Q6H PRN PRN Reason: agitation, anxiety Hydroxyzine HCl (Hydroxyzine Hcl 25 Mg Tablet) 25 mg PO Q6H PRN PRN Reason: Anxiety Ipratropium [place] (Ipratropium [place] Abhishek 0.03 % 30 Ml [place]) 2 spray NOSTRIL-B QID PRN PRN Reason: Wheezing Last Admin: 02/15/22 09:28 Dose: 2 spray Documented by: Magnesium Hydroxide (Milk Of Magnesia 30 Ml Oral.Susp) 30 ml PO DAILY PRN PRN Reason: Constipation Melatonin (Melatonin 3 Mg Tablet) 9 mg PO BEDTIME PRN PRN Reason: insomnia Risperidone (Risperidone 2 Mg Tablet) 2 mg PO BEDTIME [facility] Last Admin: 02/14/22 20:48 Dose: 2 mg Documented by: Tiotropium [place] (Tiotropium [place] 18 Mcg Cap.W.Dev) 1 puff INHALE RDAILY [facility] Last Admin: 02/15/22 09:36 Dose: Not Given Documented by: Tizanidine HCl (Tizanidine Hcl 4 Mg Tablet) 4 mg PO BEDTIME [facility] Last Admin: 02/14/22 20:49 Dose: 4 mg Documented by: Trazodone HCl (Trazodone Hcl 50 Mg Tablet) 50 mg PO BEDTIME PRN PRN Reason: Insomnia Allergies Allergies Allergy/AdvReac Type Severity Reaction Status Date / Time bee pollen [bee stings] Allergy Severe Anaphylaxis Verified 01/28/22 22:10 Iodinated Contrast Media Allergy Severe Unknown Verified 01/28/22 22:11 [Contrast Dye] Tetracyclines Allergy Mild Unknown Verified 01/24/22 19:43 Assessment & Plan Assessment & Plan (1) Schizoaffective disorder, bipolar type: Status: Acute Code(s): F25.0 - Schizoaffective disorder, bipolar type (2) Chronic post-traumatic stress disorder (PTSD): Status: Acute Code(s): F43.12 - Post-traumatic stress disorder, chronic Plan Caryn is a 56 yo female who carries a dx of paranoid schizophrenia. 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 She presented to [facility] ED on 02/07/22 due to disorganized and paranoid behavior, brought in by her after found in middle of road screaming at 5am. Pt recently admitted to [facility] M5 01/25/22 to 01/31/22. She was started on risperdal with good effect and discharged on 2 mg QHS. Since discharge, pt reports she has been non-adherent with PO risperdal. Pt has SELMA but refuses to use hospital CPAP.? -agrees to risperdal 2 mg QHS due to benefit on prev admission. Pt appears calmer during this admission and with increased behavioral control vs previous admission, in which she was much more agitated and difficult to redirect. Patient does not think she has a psychotic disorder however agrees that antipsychotic medication may be helpful 02/13 Patient much more calm, linear and organized. She is still circumstantial in her speech but not overly so. She also agrees that she was dysregulated and delusional prior to this admission and agrees she needs to keep taking Risperdal. Patient wants to go home but agrees to retract 3 day notice to demonstrate continued stability. Patient will place another 3 day notice in for insurance sake. Patient may still have some delusional thought content however she has remained appropriate with peers and staff, and good behavioral and impulse control on the unit, attending groups and contributing appropriately. If patient remains on current medication it is possible she could remained stable enough for discharge. Will get her 's input 02/15 patient is at baseline; she reports being in a good mood and is optimistic about staying stable, feeling that medications are helpful. She is looking forward to going home and plans to continue treatment with her therapist an outpatient provider. Her agrees that she is stable and appropriate for returning home. Patient is not in imminent risk for harm to self or others. Her 3 day notice is due and her request for discharge honored. Schizophrenia/schizoaffective VS Delusional disorder VS Ptsd: Pt understands she has PTSD; regarding psychotic symptoms, she believes they are only present when dysregulation from trauma; she has limited insight regarding her delusional thinking which is present at baseline even during times of stable mood. Until now, No history of antipsychotic medication?other than prior admission 10 days ago when she took Risperdal for a few days but then refused it Patient has history of chronic paranoid delusional thinking at baseline independent of mood episodes; this has been ongoing for years and is something her family understands and accepts; until past month, she has mostly been able to safely function, living with her family. She denies AVH however her reports she will talk to herself, sometimes for hours and can be internally preoccupied. This past 10 days she has hardly slept at all leading diagnosis of schizoaffective disorder with intermittent depressed and manic episodes. It is also true that trauma can produce psychotic symptoms and her history of trauma, which she has been addressing more in therapy over the past few months, combined with urgency to confront her father, are likely significant exacerbating factors. Nevertheless, it appears that her psychotic symptoms are also independent of the PTSD exacerbated symptoms and due to underlying organic psychotic disorder. Patient struggles with insight into the extent of her psychotic symptoms. Plan: Q15 min safety checks, CV, 3 day notice Risperdal 2 mg q.h.s. Monitor response to medications. Monitor for safety in the milieu. Discharge on stabilization. Patient seen. Chart reviewed. Discussed with team. Obtain collateral contact info?as needed I spent minutes with the patient and/or on the patient floor today, greater than?50% of which was spent counseling/coordinating care. Patient educated on: diagnosis and therapeutic strategies Informed Consent: further education needed (understands PTSD and psychotic symptoms which she believes are due to dysregulation from trauma; limited insight regarding baseline delusional thinking at baseline) Reason for contiued inpatient stay Substantial Risk for: stable for discharge
[2022-02-15] MEDS: risperiDONE 2 MG TABLET PO (20:44)
[2022-02-15] MEDS: TiZANidine HCL 4 MG TABLET PO (20:44)
[2022-02-15] MEDS: Gabapentin 100 MG CAPSULE PO (20:45)
[2022-02-15] MEDS: Baclofen 10 MG TABLET 5 MG PO (20:45)
[2022-02-16 09:15] VITALS: BP 121/60; PULSE 84; RESP 16; TEMP 36.9; O2SAT 96
[2022-02-16] MEDS: Ipratropium Bromide Nas 0.03 % 30 ML SPRAY 2 SPRAY NOSTRIL-B (09:15)
[2022-02-16] MEDS: Fluticasone/Vilanterol 100/25 BLST.W.DEV 1 PUFF INHALE (09:16)
[2022-02-16] MEDS: Furosemide 20 MG TABLET PO (09:16)
[2022-02-16] MEDS: Aspirin 325 MG TABLET PO (09:16)
[2022-02-16] MEDS: Gabapentin 300 MG CAPSULE PO ×2 (09:16→12:38)
[2022-02-16] MEDS: Atorvastatin Calcium 20 MG TABLET PO (09:16)
[2022-02-16] MEDS: Escitalopram Oxalate 10 MG TABLET PO (09:16)
--- NOTE | 2022-02-16 09:28 | P.DS_ITS ---
DS: Providers Provider Date of Service: 02/16/22 Date of admission: 02/09/22 21:22 Date of discharge: 02/16/22 Primary care physician: Unknown Physician Attending physician on admission: Faraz Panda Consults: 02/09/22 22:03 Consult to Hospitalist Routine Consulting Provider: Hospitalist Reason For Exam: New admit from [facility] Attending physician on discharge: Faraz Panda DS: Diagnosis Discharge Diagnosis (1) Schizoaffective disorder, bipolar type: Status: Acute (2) Chronic post-traumatic stress disorder (PTSD): Status: Acute DS: Medications Discharge Medications Home Medications: Home Medications Medication Instructions Recorded Confirmed aspirin 325 mg tablet,delayed 1 tab PO DAILY 01/24/22 01/24/22 release atorvastatin 20 mg tablet 1 tab PO DAILY 01/24/22 02/09/22 baclofen 5 mg tablet 1 tab PO BEDTIME 01/24/22 02/09/22 escitalopram oxalate 10 mg tablet 1 tab PO DAILY 01/24/22 01/24/22 fluticasone fur. 100 mcg-umeclid 1 puff INHALATION DAILY 01/24/22 01/24/22 62.5 mcg-vilant 25 mcg inhalat.powder (Trelegy Ellipta) furosemide 20 mg tablet 1 tab PO BID 01/24/22 02/09/22 gabapentin 300 mg capsule 1 cap PO TID 01/24/22 01/24/22 ipratropium bromide 21 mcg (0.03 INTRANASAL 01/24/22 %) nasal spray tizanidine 4 mg capsule 1 cap PO BEDTIME 01/24/22 02/09/22 Previous Rx's Medication Instructions Recorded escitalopram oxalate 10 mg tablet 10 mg PO DAILY 30 Days #30 tab 02/16/22 melatonin 3 mg tablet 9 mg PO BEDTIME PRN #0 tab 02/16/22 risperidone 2 mg tablet 2 mg PO BEDTIME 30 Days #30 tab 02/16/22 Mental Status Exam Mental Status Exam Narrative: Pt is alert and oriented; behavior is calm and cooperative; dressed in casual attire, adequately groomed, walks with limp s/p CVA; mood is described as good and affect congruent, calm; eye contact appropriate; Speech is normal rate, volume and prosody; no psychomotor agitation present; thought process goal oriented and mostly linear; though still circumstantial, much less than on admission; Thought content on discharge and continuing treatment as an outpt; perhaps some delusional thinking but this is baseline; she denies current delusional content or?paranoid ideation; denies any SI/HI. Denies AVH; ?Patients insight and judgment are impaired but adequate and at baseline. Data Data Completed and Pending Completed studies during hospitalization [Text1]: 02/10/22 02/10/22 02/10/22 08:44 08:44 08:44 Estimat Average Glucose 108 Hemoglobin A1c % 5.4 Magnesium 2.4 Triglycerides 187 Cholesterol 154 LDL Cholesterol, Calc 68 HDL Cholesterol 49 Vitamin B12 653 Folate 15.1 TSH 2.12 Free T4 1.22 DS: Summary Hospital Course Hospital Course: Caryn is a 56 yo female who carries a dx of paranoid schizophrenia. 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 She presented to [facility] ED on 02/07/22 due to disorganized and paranoid behavior, brought in by her after found in middle of road screaming at 5am. Pt recently admitted to [facility] M5 01/25/22 to 01/31/22. She was started on risperdal with good effect and discharged on 2 mg QHS. Since discharge, pt reports she has been non-adherent with PO risperdal. Pt has SELMA but refuses to use hospital CPAP.? -agrees to risperdal 2 mg QHS due to benefit on prev admission. Pt appears calmer during this admission and with increased behavioral control vs previous admission, in which she was much more agitated and difficult to redirect. Patient does not think she has a psychotic disorder however agrees that antipsychotic medication may be helpful. Risks/side-effects of Risperdal reviewed. 02/13 On Risperdal, Patient much more calm, linear and organized. She is still circumstantial in her speech but not overly so. She also agrees that she was dysregulated and delusional prior to this admission and agrees she needs to keep taking Risperdal. Patient wants to go home but agrees to retract 3 day notice to demonstrate continued stability. Patient placed another 3 day notice in for insurance sake. Patient may still have some delusional thought content however this is present at her baseline and she has remained appropriate with peers and staff, and good behavioral and impulse control on the unit, attending groups and contributing appropriately. Patient continued to remain in good behavioral and impulse control with improved insight and judgment. Patient's visited who agreed that patient is stable and able to come home. As discharge approached, she reports being in a good mood and optimistic about staying stable, feeling that medications are helpful. She is looking forward to going home and plans to continue treatment with her therapist an outpatient provider. Her agrees that she is stable and appropriate for returning home. Patient is not in imminent risk for harm to self or others. Her 3 day notice is due and her request for discharge honored. Schizophrenia/schizoaffective VS Delusional disorder VS Ptsd: Pt understands she has PTSD; regarding psychotic symptoms, she believes they are only present when dysregulation from trauma; she has limited insight regarding her delusional thinking which is present at baseline even during times of stable mood. Until now, No history of antipsychotic medication?other than prior admission 10 days ago when she took Risperdal for a few days but then refused it Patient has history of chronic paranoid delusional thinking at baseline independent of mood episodes; this has been ongoing for years and is something her family understands and accepts; until past month, she has mostly been able to safely function, living with her family. She denies AVH however her reports she will talk to herself, sometimes for hours and can be internally preoccupied. This past 10 days she has hardly slept at all leading diagnosis of schizoaffective disorder with intermittent depressed and manic episodes. It is also true that trauma can produce psychotic symptoms and her history of trauma, which she has been addressing more in therapy over the past few months, combined with urgency to confront her father, are likely significant exacerbating factors. Nevertheless, it appears that her psychotic symptoms are also independent of the PTSD exacerbated symptoms and due to underlying organic psychotic disorder. Patient struggles with insight into the extent of her psychotic symptoms. Time spent discussing smoking cessation with patient: 3 to 10 minutes Status at Discharge Functional status at discharge: uses cane/walker Overall status at discharge: patient is back to baseline Time Spent with Patient Time attestation: Total time spent providing and/or coordinating discharge services: Time spent: Greater than 30 minutes Discharge Plan Discharge Patient Disposition: Home, Self-Care Discharge Diagnosis: Schizoaffective disorder, bipolar type, in full remission Referrals: [facility] [Other] - 03/12/22 10:45 am (Tele-psychiatry appointment for medication management services Patient needs to complete consent form which will be in email prior to her having appointment. Consent form needs to be completed by Sunday02/17/22.) [facility] [Other] - 02/27/22 1:00 pm (Outpatient therapy appointment with therapist) Julita Hernández MD [Physician] - 02/22/22 2:10 pm (in house) Discharge Medications: New risperidone 2 mg Tablet 2 mg PO BEDTIME 30 Days Qty: 30 0RF melatonin 3 mg Tablet 9 mg PO BEDTIME PRN (Reason: insomnia) Qty: 0 0RF escitalopram oxalate 10 mg Tablet 10 mg PO DAILY 30 Days Qty: 30 0RF Continued aspirin 325 mg tablet,delayed release (DR/EC) 1 tab PO DAILY 0RF atorvastatin 20 mg tablet 1 tab PO DAILY 0RF escitalopram oxalate 10 mg tablet 1 tab PO DAILY 0RF furosemide 20 mg tablet 1 tab PO BID 0RF gabapentin 300 mg capsule 1 cap PO TID 0RF tizanidine 4 mg capsule 1 cap PO BEDTIME 0RF Trelegy Ellipta 100-62.5-25 mcg blister with device 1 puff inhalation DAILY 0RF ipratropium bromide 21 mcg (0.03 %) spray,non-aerosol intranasal 0RF baclofen 5 mg tablet 1 tab PO BEDTIME 0RF Discharge Orders: Discharge Order (Routine); Ordered 02/16/22 Ordered By: Faraz Panda Diet: regular diet Activity on Discharge: As tolerated Stand Alone Forms: Patient Portal Discharge page, Community Support Care Plan Goals: Maintain mood and safe behaviors Take medications as prescribed Practice coping skills Continue with outpatient providers and reach out to them as needed Health Concerns: Mood stability and behaviors Hx of CVA Plan of Treatment: Follow up with your PCP, psychiatric provider and other outpatient providers regarding above concerns Take medications as prescribed Assessment: Risk assessment at time of discharge:? Patient was interviewed prior to discharge and found to be fully oriented and without any SI or HI. Patient has insight and demonstrates good judgment in terms of wanting to pursue treatment. Patient is not in imminent risk of harm to self or others and has a safety plan that includes presenting to the closest ER or calling 911 if feeling unsafe.? Patient has been observed closely by nursing and unit staff throughout admission; patient has not engaged in any behaviors that suggest dangerousness to self or others and has demonstrated appropriate behaviors and impulse control
== END 2022-02-16 13:53 | disposition home or self-care (01) | DRG 885 ==
PROVIDERS: Registered Nurse; Admitting Provider Psychiatry & Neurology Psychiatry; Visit Provider Psychiatry & Neurology Psychiatry
DX: F25.0 Schizoaffective disorder, bipolar type (principal); I69.854 Hemiplegia and hemiparesis following other cerebrovascular disease affecting left non-dominant side; F43.12 Post-traumatic stress disorder, chronic; G47.33 Obstructive sleep apnea (adult) (pediatric); E66.9 Obesity, unspecified; E78.5 Hyperlipidemia, unspecified; Z62.810 Personal history of physical and sexual abuse in childhood; Z91.041 Radiographic dye allergy status; Z91.14 Patient's other noncompliance with medication regimen; Z91.51 Personal history of suicidal behavior; Z79.82 Long term (current) use of aspirin; Z79.899 Other long term (current) drug therapy
CPT/HCPCS: 36415; 80061; 82607; 82746; 83036; 83735; 84439; 84443